=== PATIENT | male | born 1945 | race Caucasian/White ===

== ENCOUNTER 2018-01-18 15:59 | Emergency (ER) | payer OTHER, MEDICARE ==
[~2018-01-18] VITALS: Ht 170.2 cm; Wt 102.1 kg
[~2018-01-18 15:59] MED LIST: ACET325 PO; DEXA2 PO; FAMO20 PO; GABA100 PO; HYDCHL12.5 PO; HYDR1TAB94 PO; Keppra750 MG PO; LEVE500 PO; LEVSOD100 PO; METF500 PO; PHENY100ER PO
[2018-01-18] MEDS ORDERED: ATOR40TA PO (16:42)
[2018-01-18] MEDS ORDERED: LIRA0.6P SC (16:42)
[2018-01-18] MEDS ORDERED: PIOG15 PO (16:42)
[2018-01-18] MEDS ORDERED: ALLO100 PO (16:43)
[2018-01-18] MEDS ORDERED: WARF2 PO (16:43)
[2018-01-18] MEDS ORDERED: GLIM2 PO (16:43)
[2018-01-18] MEDS ORDERED: Micro-K10 MEQ PO (16:44)
[2018-01-18] MEDS ORDERED: FURO20 PO (16:44)
[2018-01-18] MEDS ORDERED: WARF1 PO (16:52)
[2018-01-18 17:07] LABS: BASOPHILS PERCENT AUTO 1 % (0-2); EOSINOPHILS ABSOLUTE AUTO 0.21 K/mm3 (0.00-0.68); EOSINOPHILS PERCENT AUTO 2 % (0-6); Hematocrit 40.6 % (37.0-53.0); Hemoglobin 11.6 g/dL (13.5-17.5); IMMATURE GRAN ABSOLUTE AUTO 0.02 K/mm3 (0.00-0.10); IMMATURE GRAN PERCENT AUTO 0 % (0-1); LYMPHOCYTES ABSOLUTE AUTO 2.01 K/mm3 (0.84-5.20); LYMPHOCYTES PERCENT AUTO 23 % (21-46); MONOCYTES ABSOLUTE AUTO 0.79 K/mm3 (0.16-1.47); MONOCYTES PERCENT AUTO 9 % (4-13); Mean Corpuscular HGB 21.2 pg (26.0-34.0); Mean Corpuscular HGB Conc 28.6 g/dL (31.5-36.5); Mean Corpuscular Volume 74 fL (80-100); NEUTROPHILS ABSOLUTE AUTO 5.74 K/mm3 (1.96-9.15); NEUTROPHILS PERCENT AUTO 65 % (41-73); Platelet Count 317 K/mm3 (150-400); RDW Coefficient Variation 16.1 % (11.7-14.2); RDW Standard Deviation 42.8 fL (35.1-46.3); Red Blood Cell Count 5.47 M/mm3 (4.30-5.90); White Blood Cell Count 8.87 K/mm3 (4.00-11.30)
[2018-01-18 17:19] LABS: Alanine Aminotransfer (ALT/SGP 33 U/L (12-78); Albumin, Blood 3.5 g/dL (3.4-5.0); Albumin/Globulin Ratio 1.1 (0.8-1.8); Alk Phos 82 U/L (50-136); Anion Gap 8 mmol/L (6-16); Aspartate Aminotrans (AST/SGOT 20 U/L (12-37); Bilirubin, Total 0.3 mg/dL (0.1-1.0); Blood Urea Nitrogen 17 mg/dL (8-24); Bun/Creatinine Ratio 19.9 (12.0-20.0); CO2, Blood 28 mmol/L (21-32); Calcium, Blood 8.9 mg/dL (8.5-10.1); Chloride, Blood 103 mmol/L (98-108); Creatinine, Blood 0.86 mg/dL (0.60-1.20); Globulin, Blood 3.3 g/dL (2.2-4.0); Glomerular Filtration Rate >60 (60-); Glucose, Blood 185 mg/dL (70-99); Potassium, Blood 3.6 mmol/L (3.5-5.5); Sodium, Blood 139 mmol/L (136-145); Total Protein, Blood 6.8 g/dL (6.4-8.2)
[2018-01-18 17:37] LABS: International Normalized Ratio 3.42; Prothrombin Time Results 32.9 Sec (9.7-11.5)
[2018-01-18] MEDS ORDERED: NEOPOLHCSU LEFTEAR (18:06)
== END 2018-01-18 18:14 | disposition home or self-care (01) ==
LOC: ER 15:59
PROVIDERS: Emergency Medicine
DX: H92.22 Otorrhagia, left ear (principal); D68.9 Coagulation defect, unspecified; I10 Essential (primary) hypertension; Z79.899 Other long term (current) drug therapy; Z79.01 Long term (current) use of anticoagulants
CPT/HCPCS: 36415; 80053; 85025; 85610; 85730; 93005; 93010; 99283-25